=== PATIENT | male | born 1950 | race Caucasian/White ===

== ENCOUNTER → 2020-02-16 | Outpatient (CLI) | payer OTHER ==
[~2020-02-16] MED LIST: Levaquin500 MG PO
== END ==
LOC: LAB 07:18 → LAB SHORT 07:18
DX: R21 Rash and other nonspecific skin eruption (principal)
CPT/HCPCS: 88312

== ENCOUNTER → 2021-04-25 | Outpatient (CLI) | payer OTHER | LOC: LAB SHORT 13:53 → PLD 13:53 | DX: R21 Rash and other nonspecific skin eruption (principal) | CPT/HCPCS: 88312 ==

== ENCOUNTER → 2021-04-25 | Outpatient (CLI) | payer OTHER | END | disposition home or self-care (01) | LOC: LAB 11:07 → LAB SHORT 11:07 | DX: L08.9 Local infection of the skin and subcutaneous tissue, unspecified (principal); B35.1 Tinea unguium; B35.3 Tinea pedis; R21 Rash and other nonspecific skin eruption | CPT/HCPCS: 87070; 87205 ==

== ENCOUNTER → 2022-06-21 | Outpatient (CLI) | payer OTHER | LOC: PLD 07:21 → LAB SHORT 07:21 | DX: L30.8 Other specified dermatitis (principal) | CPT/HCPCS: 88312 ==

== ENCOUNTER → 2022-06-21 | Outpatient (CLI) | payer OTHER | END | disposition home or self-care (01) | LOC: LAB SHORT 16:11 | DX: L08.9 Local infection of the skin and subcutaneous tissue, unspecified (principal) | CPT/HCPCS: 87070; 87077; 87186; 87205 ==

== ENCOUNTER → 2022-07-09 | Outpatient (CLI) | payer OTHER | END | disposition home or self-care (01) | LOC: LAB SHORT 09:43 → LAB 09:43 | DX: L08.9 Local infection of the skin and subcutaneous tissue, unspecified (principal) | CPT/HCPCS: 87070; 87205 ==